=== PATIENT | male | born 1970 | race Two or more races ===

== ENCOUNTER 2017-08-29 04:38 | Inpatient (IN) | payer OTHER ==
[~2017-08-29] VITALS: Ht 167.6 cm; Wt 70.3 kg
[2017-08-29] MEDS ORDERED: HYDROmorphone HCL 2 MG/ML VL ONE (05:56)
[2017-08-29] MEDS ORDERED: ONDANSETRON HCL 4 MG/2 ML VIAL ONE (05:56)
[2017-08-29] MEDS ORDERED: KETOROLAC TROMETH 30 MG/ML 1ML VIAL ONE (06:05)
[2017-08-29] MEDS ORDERED: ONDANSETRON HCL 4 MG/2 ML VIAL IV ONE (06:15)
[2017-08-29] MEDS ORDERED: KETOROLAC TROMETH 30 MG/ML 1ML VIAL IV ONE (06:15)
[2017-08-29] MEDS ORDERED: HYDROmorphone HCL 2 MG/ML VL IV ONE ×2 (06:15→09:00)
[2017-08-29] MEDS ORDERED: SODIUM CHLORIDE 0.9% 1,000 ML IVB ONE (06:16)
[2017-08-29 06:20] LABS: Basophils # (auto) 0 uL; Basophils % (auto) 0.3 % (0.0-2.0); Eosinophils # (auto) 0.1 uL; Eosinophils % (auto) 0.4 % (0.0-7.0); Hematocrit 46.9 % (41.0-53.0); Hemoglobin 15.7 g/dL (13.5-17.5); Lymphocytes # (auto) 1.6 uL; Lymphocytes % (auto) 10.4 % (10.0-50.0); Mean Corpuscular Hemoglobin 28.6 pg (28.0-32.0); Mean Corpuscular Hgb Conc. 33.5 g/dL (32.0-36.0); Mean Corpuscular Volume 85.2 fL (80.0-100.0); Monocytes # (auto) 0.8 uL; Monocytes % (auto) 5.5 % (0.0-12.0); Neutrophils # (auto) 12.8 uL; Neutrophils % (auto) 83.4 % (37.0-80.0); Nucleated Red Blood Cells % 0.1 %; Platelet Count (auto) 271 10^3/uL (140-450); Red Cell Distribution Width 13.3 % (11.8-14.3); White Blood Cell 15.4 10^3/uL (4.4-10.8)
[2017-08-29 06:35] LABS: INR 1.01 (0.9-1.15); Partial Thromboplastin Time 24.3 sec (22.64-33.71)
[2017-08-29 06:44] LABS: Alanine Aminotransferase 39 U/L (16-61); Albumin 3.9 g/dL (3.4-5.0); Amylase 57 U/L (25-115); Anion Gap 10 (5-15); Aspartate Aminotransferase 23 U/L (15-37); BUN/Creatinine Ratio 15.8; Blood Urea Nitrogen 18 mg/dL (7-18); Calcium 9.2 mg/dL (8.5-10.1); Carbon Dioxide 23 mmol/L (21-32); Chloride 106 mmol/L (98-107); GFR African American 89 mL/min; GFR Non-African American 74 mL/min; Glucose 134 mg/dL (74-106); Lipase 184 U/L (73-393); Potassium 3.9 mmol/L (3.5-5.1); Sodium 139 mmol/L (136-145)
[2017-08-29 06:51] LABS: Alkaline Phosphatase 61 U/L (45-117); Bilirubin, Total 0.9 mg/dL (0.2-1.0); Total Protein 7.3 g/dL (6.4-8.2)
[2017-08-29] MEDS ORDERED: SODIUM CHLORIDE 0.9% 2,000 ML IV ONE (07:45)
[2017-08-29 07:51] VITALS: BP 110/58
[2017-08-29] MEDS ORDERED: HYDROmorphone HCL 2 MG/ML VL IV PRN (08:15)
[2017-08-29] MEDS ORDERED: KETOROLAC TROMETH 30 MG/ML 1ML VIAL IV PRN (08:30)
[2017-08-29] MEDS ORDERED: ONDANSETRON HCL 4 MG/2 ML VIAL IV PRN (08:30)
[2017-08-29] MEDS ORDERED: HYDROcodone-ACET 5/325MG TAB PO PRN (08:30)
[2017-08-29] MEDS ORDERED: SODIUM CHLORIDE 0.9% 1,000 ML IV SCH (08:30)
[2017-08-29] MEDS ORDERED: cefTRIAXone 1GM/50ML D5W 50 ML IV SCH (09:00)
[2017-08-29] MEDS ORDERED: MANNITOL 20 % (20GM/100ML) 62.5 ML IV ONE (10:00)
[2017-08-29] MEDS ORDERED: TAMSULOSIN HYDROCHLORIDE 0.4 MG CAP PO SCH (18:00)
== END 2017-08-29 10:33 | disposition home or self-care (01) | DRG 694 ==
LOC: ER 04:41 → OVERFLOW 04:42
PROVIDERS: ADMIT Internal Medicine; ATTEND Internal Medicine
DX: N20.1 Calculus of ureter (principal); K42.9 Umbilical hernia without obstruction or gangrene; N39.0 Urinary tract infection, site not specified; R35.0 Frequency of micturition; K44.9 Diaphragmatic hernia without obstruction or gangrene; Z82.49 Family history of ischemic heart disease and other diseases of the circulatory system; Z83.3 Family history of diabetes mellitus; Z87.442 Personal history of urinary calculi; Z83.42 Family history of familial hypercholesterolemia
CPT/HCPCS: 36415; 71010; 74176; 80053; 82150; 83690; 84154; 84484; 85025; 85610; 85730; 87040; 93005; 94761; 96361; 96374; 96375; J0696; J1885; J2405